=== PATIENT | female | born 1970 | race American Indian/Alaskan Native ===

== ENCOUNTER 2017-09-08 11:40 | Outpatient (CLI) | payer BC ==
--- NOTE | 2017-09-08 12:02 | XRay Report ---
RIGHT CLAVICLE RADIOGRAPHS INDICATION: Clavicle pain. COMPARISON: None similar at this institution. FINDINGS: Two frontal projections of the right clavicle demonstrate intact bones as also included joints and soft tissues. CONCLUSION: Normal right clavicle radiographs. Thank you for the opportunity to participate in this patient's care.
== END 2017-09-08 11:41 | disposition home or self-care (01) ==
LOC: SPVIMAG 11:40
PROVIDERS: ATTEND Family Medicine Adult Medicine
DX: M89.8X1 Other specified disorders of bone, shoulder (principal)